=== PATIENT | female | born 1965 | race Caucasian/White ===

== ENCOUNTER 2019-09-29 14:24 | Emergency (ER) | payer MEDICAID ==
[~2019-09-29] VITALS: Ht 162.6 cm; Wt 61.2 kg
--- NOTE | 2019-09-29 16:16 | RAD ---
Study: HIP RIGHT 2V WITH PELVIS Indication: Fall. Comparison: None. Findings: No acute fracture or malalignment at the right hip joint. No radiographic evidence for joint effusion. Relatively mild arthrosis of both hips. Scattered enthesophytes. Partially evaluated degenerative changes at the lower lumbar spine. Impression: No acute osseous abnormality seen throughout the pelvis or hips. Electronically signed by: RICARDO RAMIREZ MD (09/29/2019 4:13 PM) [facility] [place]
--- NOTE | 2019-09-29 16:45 | PHYS DOC ---
Adult General Chief Complaint Chief Complaint: MECHANICAL FALL HPI HPI 54-year-old female presents after fall. The patient fell 4 days ago. She was on a platform and got tangled up in her walker and fell onto the ground. She landed on her right side. She currently has some right hip pain. The patient's was to make sure she doesn't fracture. She is a walker at baseline. She also is out of several of her medications, either prescribed by a doctor in [place]. Review of Systems Review of Systems Constitutional: Denies fever or chills [] Eyes: Denies change in visual acuity, redness, or eye pain [] HENT: Denies nasal congestion or sore throat [] Respiratory: Denies cough or shortness of breath [] Cardiovascular: No additional information not addressed in HPI [] GI: Denies abdominal pain, nausea, vomiting, bloody stools or diarrhea [] : Denies dysuria or hematuria [] Musculoskeletal: Right hip pain[] Integument: Denies rash or skin lesions [] Neurologic: Denies headache, focal weakness or sensory changes [] Endocrine: Denies polyuria or polydipsia [] All other systems were reviewed and found to be within normal limits, except as documented in this note. Physical Exam Physical Exam Constitutional: Well developed, well nourished, no acute distress, non-toxic appearance. [] HENT: Normocephalic, atraumatic, bilateral external ears normal, oropharynx moist, no oral exudates, nose normal. [] Eyes: PERRLA, EOMI, conjunctiva normal, no discharge. [] Neck: Normal range of motion, no tenderness, supple, no stridor. [] Cardiovascular:Heart rate regular rhythm, no murmur [] Lungs & Thorax: Bilateral breath sounds clear to auscultation [] Abdomen: Bowel sounds normal, soft, no tenderness, no masses, no pulsatile masses. [] Skin: Warm, dry, no erythema, no rash. [] Back: No tenderness, no CVA tenderness. [] Extremities: Tenderness with right lateral hip palpation[] Neurologic: Alert and oriented X 3, normal motor function, normal sensory function, no focal deficits noted. [] Psychologic: Affect normal, judgement normal, mood normal. [] EKG EKG [] Radiology/Procedures Radiology/Procedures [] Impressions: Study: HIP RIGHT 2V WITH PELVIS Indication: Fall. Comparison: None. Findings: No acute fracture or malalignment at the right hip joint. No radiographic evidence for joint effusion. Relatively mild arthrosis of both hips. Scattered enthesophytes. Partially evaluated degenerative changes at the lower lumbar spine. Impression: No acute osseous abnormality seen throughout the pelvis or hips. Electronically signed by: RICARDO RAMIREZ MD (09/29/2019 4:13 PM) [facility] [place] DICTATED AND SIGNED BY: RICARDO RAMIREZ MD DATE: 09/29/19 1613 CC: HAYDE ENG DO; PCP,NO ~ Course & Med Decision Making Course & Med Decision Making Pertinent Labs and Imaging studies reviewed. (See chart for details) The patient's x-rays negative for fracture. She needs several medications refilled. I have advised that they go to the pharmacy and began working with the pharmacy in [place] to get as many these refilled here as possible. I also stressed the importance of establishing a primary care physician since she is currently living here now. She is stable for discharge at this time. [] Dragon Disclaimer Dragon Disclaimer This electronic medical record was generated, in whole or in part, using a voice recognition dictation system. Departure Departure: Impression: Primary Impression: Fall from slip, trip, or stumble Additional Impression: Right hip pain Disposition: 01 HOME, SELF-CARE Condition: STABLE Referrals: PCPCHACHA (PCP) Patient Instructions: Hip Pain Problem Qualifiers Primary Impression: Fall from slip, trip, or stumble Encounter type: initial encounter Qualified Codes: W01.0XXA - Fall on same level from slipping, tripping and stumbling without subsequent striking against object, initial encounter HAYDE ENG DO Sep 29, 2019 16:45
[2019-09-30 15:10] VITALS: BP 129/82
[2019-10-06] MEDS ORDERED: LIDO1ADH TP (15:44)
[2019-10-06] MEDS ORDERED: NAPR375T5 PO (15:44)
== END 2019-09-29 17:10 | disposition home or self-care (01) ==
LOC: ER 14:24
DX: M25.551 Pain in right hip (principal); G89.11 Acute pain due to trauma; W01.0XXA Fall on same level from slipping, tripping and stumbling without subsequent striking against object, initial encounter; Y93.89 Activity, other specified; Y92.89 Other specified places as the place of occurrence of the external cause; Y99.8 Other external cause status
CPT/HCPCS: 73502; 99284